=== PATIENT | female | born 1965 | race Caucasian/White ===

== ENCOUNTER 2017-02-24 02:41 | Emergency (ER) | payer BC ==
[~2017-02-24] VITALS: Ht 165.1 cm; Wt 109.9 kg
[~2017-02-24 02:41] MED LIST: BENICAR20 MG PO
[2017-02-24 03:15] LABS: HEMATOCRIT 42.7 % (36.0-46.0); HEMOGLOBIN 13.5 G/DL (11.9-15.5); MCH 24.2 PG (29.0-34.0); MCHC 31.6 G/DL (30.0-36.0); MCV 76.5 FL (83-99); PLATELET COUNT 250 K/uL (156-360); RBC DIS.WIDTH-CV 16.2 % (11.8-14.6); RBC DIS.WIDTH-SD 44.6 % (39-53); RED BLOOD COUNT 5.58 M/uL (3.80-5.20); WHITE BLOOD COUNT 13.3 K/uL (4.1-10.2)
[2017-02-24 03:24] LABS: CHLORIDE 106 mEq/L (99-109); SODIUM 140 mEq/L (136-147)
[2017-02-24 03:26] LABS: GLUCOSE 98 mg/dL (70-99)
[2017-02-24 03:29] LABS: CREATININE 0.8 mg/dL (0.6-1.3); GFR ESTIMATE (CALCULATED) > 59 mL/min/
[2017-02-24 03:30] LABS: UREA NITROGEN (BUN) 19 mg/dL (9-23)
[2017-02-24] MEDS ORDERED: CARTIA XT180 MG PO (03:35)
[2017-02-24 03:37] LABS: TROP-I INTERPRETATION NEGATIVE; TROPONIN-I 0.01 ng/mL (0.0-0.30)
[2017-02-24 06:22] VITALS: BP 119/77
[2017-02-24 08:32] LABS: THYROTROPIN (TSH) 6.5 MIU/L (0.4-5.5)
== END 2017-02-24 06:37 | disposition home or self-care (01) ==
LOC: EME 02:41
DX: I48.91 Unspecified atrial fibrillation (principal); I10 Essential (primary) hypertension; F41.9 Anxiety disorder, unspecified
CPT/HCPCS: 71020; 80048; 84439; 84443; 84484; 85027; 93005; 99281; 99285; J7030